=== PATIENT | male | born 1995 | race Two or more races ===

== ENCOUNTER 2018-03-19 20:13 | Emergency (ER) | payer OTHER ==
[~2018-03-19] VITALS: Ht 180.3 cm; Wt 87.5 kg
[2018-03-19 21:01] VITALS: BP 125/73
--- NOTE | 2018-03-19 21:03 | Emergency Room Report ---
History of Present Illness General Chief Complaint: Pain Source: Patient Present Illness HPI Patient presents emergency department today complaining of left hand pain. Patient states that he was seeing another hospital where an IV was started on his hand. He states that since then he noticed some pain in his left hand and a heart spot over his vein. He is concerned that maybe something was lodged in his hand but he's not sure. He thinks it might also be phlebitis. Patient admits to a history of heroin use in the past 2. No other complaints are noted. Patient denies a fever chest pain shortness of breath. No other modifying factors. No other associated signs and symptoms. No other complaints were noted. Allergies: Coded Allergies: No Known Allergies (Unverified , 03/19/18) Patient History Past Medical History: none Past Surgical History: none Pertinent Family History: none Social History: Denies: smoking, alcohol use, drug use Reviewed Nursing Documentation: PMH: Agreed; PSxH: Agreed Nursing Documentation-PMH Past Medical History: No Stated History Review of Systems All Other Systems: negative except mentioned in HPI Physical Exam Vital Signs Date Time Temp Pulse Resp B/P (MAP) Pulse Ox O2 Delivery O2 Flow Rate FiO2 03/19/18 20:22 98.2 65 16 125/73 98 Room Air 98.2 Sp02 EP Interpretation: reviewed, normal General Appearance: normal inspection, well appearing, no apparent distress, alert Head: atraumatic Eyes: bilateral eye normal inspection ENT: normal ENT inspection, hearing grossly normal, normal voice Neck: normal inspection, full range of motion, supple, no bony tend Respiratory: normal inspection, lungs clear, normal breath sounds, no respiratory distress, no retraction, no wheezing Cardiovascular #1: regular rate, rhythm, no edema Gastrointestinal: normal inspection, normal bowel sounds, non tender, soft, no guarding, no hernia Genitourinary: no CVA tenderness Musculoskeletal: back normal, normal range of motion, other - Left hand dorsal aspecphlebitis on hand. No evidence of cellulitis. Neurologic: normal inspection, alert, responsive, speech normal Psychiatric: normal inspection, judgement/insight normal, mood/affect normal Skin: normal inspection, normal color, no rash Medical Decision Making Diagnostic Impression: Primary Impression: Phlebitis ER Course Patient presents emergency department today complaint left hand pain. Differential considerations include cellulitis, abscess, phlebitis. Patient's exam is fairly benign. X-rays were obtained to rule out any retained foreign body. X-rays were negative. Therefore I felt the patient symptoms are likely secondary to phlebitis secondary to IV use. Recommend outpatient follow-up as needed warm compresses return to ER for any worsening symptoms and as needed. Other X-Ray Diagnostic Results Other X-Ray Diagnostic Results : X-Ray ordered: Left hand x-ray # of Views/Limited Vs Complete: 3 View Indication: Pain Interpretation: no dislocation, no soft tissue swelling, no fractures, other - No foreign body Impression: No acute disease Electronically Signed by: Electronically signed by Emiliano Hurtado MD Last Vital Signs Date Time Temp Pulse Resp B/P (MAP) Pulse Ox O2 Delivery O2 Flow Rate FiO2 03/19/18 20:22 98.2 65 16 125/73 98 Room Air 98.2 Disposition: HOME, SELF-CARE Condition: Stable Patient Instructions: Phlebitis, [id number] Emiliano Hurtado MD Mar 19, 2018 21:03
--- NOTE | 2018-03-20 10:02 | Diagnostic Imaging Report ---
Indication: Pain Technique: XRAY Hand Complete L Comparison: None Findings: Bone mineralization within normal limits. There is no acute fracture. Anatomic alignment and joint spaces within normal limits. No radiopaque foreign body. Impression: No acute bony or articular abnormality.
== END 2018-03-19 22:00 | disposition home or self-care (01) ==
LOC: EMR 21:03
DX: I80.8 Phlebitis and thrombophlebitis of other sites (principal)
CPT/HCPCS: 99283